=== PATIENT | male | born 1970 | race Caucasian/White ===

== ENCOUNTER 2020-01-21 07:18 | Day surgery (SDC) | payer BC ==
[~2020-01-21] VITALS: Ht 167.6 cm; Wt 63.4 kg
[~2020-01-21 07:18] MED LIST: CLARITIN; ERYT.5TO OD; HYDACE5 PO; ZYRTEC
[2020-01-21] MEDS ORDERED: ACET325 (07:47)
[2020-01-21] MEDS ORDERED: ZYRTEC10 M2 (07:47)
[2020-01-21] MEDS ORDERED: Loratadine10 MG (07:47)
== END 2020-01-21 09:19 | disposition home or self-care (01) ==
LOC: ORSCSDS 07:18
PROVIDERS: Internal Medicine Gastroenterology
PROC: 0DBN8ZX Excision of Sigmoid Colon, Via Natural or Artificial Opening Endoscopic, Diagnostic (ICD-10-PCS; principal; 2020-01-21 08:30)
DX: Z12.11 Encounter for screening for malignant neoplasm of colon (principal); K63.5 Polyp of colon; D12.5 Benign neoplasm of sigmoid colon; K64.8 Other hemorrhoids
CPT/HCPCS: 88305; J0461; J2405; J2704; J7120

== ENCOUNTER → 2020-12-24 | Outpatient (CLI) | payer BC ==
[~2020-12-24] MED LIST changes: +ACET325; +Loratadine10 MG; +ZYRTEC10 M2
== END | disposition home or self-care (01) ==
LOC: LAB SHORT 07:23
DX: D18.01 Hemangioma of skin and subcutaneous tissue (principal); L90.5 Scar conditions and fibrosis of skin
CPT/HCPCS: 88305

== ENCOUNTER 2021-08-18 08:27 | Day surgery (SDC) | payer BC ==
[~2021-08-18] VITALS: Ht 167.6 cm; Wt 63.4 kg
[2021-08-18] MEDS ORDERED: ZOLP5 (08:51)
--- NOTE | 2021-08-18 10:06 | NUR ---
08/18/21 Baljinder Yan LIDOCAINE 2% WITH EPI 1:100,000 MIXED 1:1 WITH BUPIVICAINE 0.75% TO CREATE A LOCAL SOLUTION.
--- NOTE | 2021-08-18 11:00 | NUR ---
08/18/21 1100 CORINA ARGUELLO BANDAID PLACED TO COVER INCISION, SKIN BENEATH SUTURES AT OP SITE APPEAR APPROXIMATED, NO DRAINAGE, DC INSTRUCTIONS GIVEN- PT VERBALIZED UNDERSTANDING. PT AMBULATORY AT MS, RECEIVED LOCAL ANESTHESIA ONLY
== END 2021-08-18 11:00 | disposition home or self-care (01) ==
LOC: ORSCSDS 08:27
PROVIDERS: Ophthalmology
PROC: 08BRXZX Excision of Left Lower Eyelid, External Approach, Diagnostic (ICD-10-PCS; principal; 2021-08-18 09:30)
DX: D18.01 Hemangioma of skin and subcutaneous tissue (principal)
CPT/HCPCS: 88305; A9270; J7040

== ENCOUNTER 2025-01-29 08:29 | Day surgery (SDC) | payer BC ==
[~2025-01-29] VITALS: Ht 167.6 cm; Wt 66.1 kg
[~2025-01-29 08:29] MED LIST changes: +ZOLP5
[2025-01-29 11:42] VITALS: BP 121/76
== END 2025-01-29 11:48 | disposition home or self-care (01) ==
LOC: ORSCSDS 08:29
PROVIDERS: Internal Medicine Gastroenterology
PROC: 0DJD8ZZ Inspection of Lower Intestinal Tract, Via Natural or Artificial Opening Endoscopic (ICD-10-PCS; principal; 2025-01-29 10:15)
DX: Z12.11 Encounter for screening for malignant neoplasm of colon (principal); Z86.0101 Personal history of adenomatous and serrated colon polyps
CPT/HCPCS: J2704; J7120